=== PATIENT | male | born 1950 | race Two or more races ===

== ENCOUNTER → 2022-06-03 | Outpatient (REF) | payer MEDICARE, BC, SELFPAY ==
[2022-06-05 19:07] LABS: QNTFERON TB Mitogen Value > 10.00 IU/mL (.); QNTFERON TB Nil Value 0.06 IU/mL (.); QNTFERON TB1+ Ag Value 0.06 IU/mL (.); QNTFERON TB2+ Ag Value 0.08 IU/mL (.)
[2022-06-05 21:07] LABS: QNTIFERON TB Positive Criteria Negative (Negative)
== END ==
LOC: EMPH 09:32
DX: Z00.00 Encounter for general adult medical examination without abnormal findings (principal)
CPT/HCPCS: 86480